=== PATIENT | female | born 1955 | race Caucasian/White ===

== ENCOUNTER 2020-03-19 12:21 | Observation (INO) ==
[2020-03-19] MEDS ORDERED: 0.9 % Sodium Chloride 1,000 ML IVC ONE (13:15)
[2020-03-19] MEDS ORDERED: Piperacillin/Tazobactam 3.375 GM in 0.9 % Sodium Chloride Mini Bag 100 ML IVPB ONE (13:15)
[2020-03-19 13:46] LABS: Basophils # 0.1 K/mcL (0.0-0.2); Basophils % 0.9 %; Eosinophils # 0.2 K/mcL (0.0-0.6); Eosinophils % 1.8 %; Hematocrit 34.8 % (35.3-44.9); Hemoglobin 10.7 g/dL (11.5-15.4); Immature Granulocytes % 0.5 % (0-4); Lymphocytes # 1.2 K/mcL (0.6-4.6); Lymphocytes % 15.3 %; Mean Corpuscular HGB Conc 30.7 g/dL (31.6-35.5); Mean Corpuscular Hemoglobin 29.6 pg (28.0-33.3); Mean Corpuscular Volume 96.4 fL (83.0-100.0); Monocytes # 0.6 K/mcL (0.0-1.3); Monocytes % 7.6 %; Platelet Count 500 K/mcL (140-400); Red Blood Count 3.61 M/mcL (3.82-4.97); Red Cell Distribution Width 12.6 % (11.5-14.5); Segmented Neutrophils % 73.9 %; White Blood Count 8.1 K/mcL (4.3-11.1)
[2020-03-19 14:06] LABS: BUN/Creatinine Ratio 19 (6-26); Blood Urea Nitrogen 13 mg/dL (8-23); C-Reactive Protein 45 mg/L (Less than 10); Calcium 8.8 mg/dL (8.6-10.3); Carbon Dioxide 28 mEq/L (23-29); Chloride 103 mEq/L (98-107); Glucose 161 mg/dL (70-105); Osmolality,Calculated 292 (280-300); Potassium 3.5 mEq/L (3.5-5.1); Sodium 139 mEq/L (136-145); eGFR For African Americans > 60 (> 60); eGFR For Non-African Americans > 60 (> 60)
[2020-03-19] MEDS ORDERED: Ondansetron 4 MG/2 ML VIAL IVP PRN (15:26)
[2020-03-19] MEDS ORDERED: Naloxone 0.4 MG/ML INJ IVP PRN (15:26)
[2020-03-19] MEDS: Piperacillin/Tazobactam 3.375 GM in 0.9 % Sodium Chloride Mini Bag 100 ML IVPB SCH (20:20)
[2020-03-20] MEDS: Piperacillin/Tazobactam 3.375 GM in 0.9 % Sodium Chloride Mini Bag 100 ML IVPB SCH ×3 (04:22→20:01)
[2020-03-20] MEDS: *HR* Enoxaparin 40 MG/0.4 ML SYRINGE SQ SCH (05:15)
[2020-03-20 08:54] LABS: Basophils # 0.1 K/mcL (0.0-0.2); Basophils % 0.8 %; Eosinophils # 0.1 K/mcL (0.0-0.6); Eosinophils % 1.3 %; Hematocrit 33.1 % (35.3-44.9); Hemoglobin 10.3 g/dL (11.5-15.4); Immature Granulocytes % 0.3 % (0-4); Lymphocytes % 14.6 %; Mean Corpuscular HGB Conc 31.1 g/dL (31.6-35.5); Mean Corpuscular Hemoglobin 30.4 pg (28.0-33.3); Mean Corpuscular Volume 97.6 fL (83.0-100.0); Mean Platelet Volume 8.8 fL (9.4-12.4); Monocytes # 0.6 K/mcL (0.0-1.3); Monocytes % 9.1 %; Neutrophils # 5.2 K/mcL (1.6-8.9); Platelet Count 407 K/mcL (140-400); Red Blood Count 3.39 M/mcL (3.82-4.97); Red Cell Distribution Width 12.7 % (11.5-14.5); Segmented Neutrophils % 73.9 %; White Blood Count 7.1 K/mcL (4.3-11.1)
[2020-03-20 09:16] LABS: BUN/Creatinine Ratio 19 (6-26); Blood Urea Nitrogen 13 mg/dL (8-23); Calcium 8.4 mg/dL (8.6-10.3); Carbon Dioxide 25 mEq/L (23-29); Chloride 107 mEq/L (98-107); Glucose 111 mg/dL (70-105); Osmolality,Calculated 291 (280-300); Phosphorous 2.7 mg/dL (2.7-4.5); Potassium 3.9 mEq/L (3.5-5.1); Sodium 140 mEq/L (136-145); eGFR For African Americans > 60 (> 60); eGFR For Non-African Americans > 60 (> 60)
[2020-03-20] MEDS: Acetaminophen 325 MG TABLET PO PRN ×2 (09:39→19:33)
[2020-03-21 02:40] LABS: Basophils # 0.1 K/mcL (0.0-0.2); Basophils % 0.9 %; Eosinophils # 0.1 K/mcL (0.0-0.6); Eosinophils % 2.2 %; Hematocrit 32.3 % (35.3-44.9); Immature Granulocytes % 0.6 % (0-4); Lymphocytes # 1.3 K/mcL (0.6-4.6); Lymphocytes % 20.7 %; Mean Platelet Volume 8.7 fL (9.4-12.4); Monocytes # 0.6 K/mcL (0.0-1.3); Neutrophils # 4.1 K/mcL (1.6-8.9); Platelet Count 414 K/mcL (140-400); Red Blood Count 3.33 M/mcL (3.82-4.97); Red Cell Distribution Width 12.6 % (11.5-14.5); Segmented Neutrophils % 65.6 %; White Blood Count 6.3 K/mcL (4.3-11.1)
[2020-03-21 02:58] LABS: BUN/Creatinine Ratio 21 (6-26); Blood Urea Nitrogen 17 mg/dL (8-23); Calcium 8.4 mg/dL (8.6-10.3); Carbon Dioxide 26 mEq/L (23-29); Chloride 109 mEq/L (98-107); Glucose 103 mg/dL (70-105); Magnesium 2.1 mg/dL (1.6-2.6); Osmolality,Calculated 294 (280-300); Phosphorous 3.4 mg/dL (2.7-4.5); Sodium 141 mEq/L (136-145); eGFR For African Americans > 60 (> 60); eGFR For Non-African Americans > 60 (> 60)
[2020-03-21] MEDS: Piperacillin/Tazobactam 3.375 GM in 0.9 % Sodium Chloride Mini Bag 100 ML IVPB SCH ×3 (03:21→20:16)
[2020-03-21] MEDS: *HR* Enoxaparin 40 MG/0.4 ML SYRINGE SQ SCH (04:54)
[2020-03-21] MEDS: Acetaminophen 325 MG TABLET PO PRN (14:01)
[2020-03-21] MEDS: Clotrimazole 1% CRM 15 GM TUBE TP SCH (20:15)
[2020-03-22] MEDS: Piperacillin/Tazobactam 3.375 GM in 0.9 % Sodium Chloride Mini Bag 100 ML IVPB SCH (04:52)
[2020-03-22] MEDS: *HR* Enoxaparin 40 MG/0.4 ML SYRINGE SQ SCH (04:58)
[2020-03-22 06:09] LABS: BUN/Creatinine Ratio 19 (6-26); Blood Urea Nitrogen 13 mg/dL (8-23); Calcium 8.6 mg/dL (8.6-10.3); Carbon Dioxide 26 mEq/L (23-29); Chloride 109 mEq/L (98-107); Glucose 93 mg/dL (70-105); Osmolality,Calculated 294 (280-300); Sodium 142 mEq/L (136-145); eGFR For African Americans > 60 (> 60); eGFR For Non-African Americans > 60 (> 60)
[2020-03-22 07:14] VITALS: BP 133/70
[2020-03-22] MEDS: Clotrimazole 1% CRM 15 GM TUBE TP SCH (09:16)
[2020-03-22] MEDS ORDERED: Aminoglycoside Consult 1 EACH MC ONE (11:23)
== END 2020-03-22 11:24 | disposition home or self-care (01) ==
LOC: EMEROOARM 12:21 → 3ANU 12:21 → SUATTDRO 15:26 → 3ANU 15:51
PROVIDERS: ADMIT Internal Medicine; ATTEND Internal Medicine